=== PATIENT | male | born 1980 | race Caucasian/White ===

== ENCOUNTER 2018-05-02 10:22 | Day surgery (SDC) | payer OTHER ==
[2018-04-29 11:13] VITALS: BMI 36.3
[2018-05-02] MEDS ORDERED: PROPOFOL 20 ML ONE (12:36)
[2018-05-02] MEDS ORDERED: MIDAZOLAM HCL 2 MG/2 ML SINGLE DOSE VIAL ONE (12:36)
[2018-05-02] MEDS ORDERED: LIDOCAINE HCL 1%, 10 MG/ML (20ML VIAL) ONE (13:13)
[2018-05-02] MEDS ORDERED: oxyCODONE HCL 5 MG TABLET PO PRN ×2 (14:59)
[2018-05-02] MEDS ORDERED: ONDANSETRON 4 MG/2 ML VIAL IVPUSH PRN (14:59)
[2018-05-02] MEDS ORDERED: LACTATED RINGERS SOLUTION 1,000 ML IV SCH (15:00)
[2018-05-02] MEDS ORDERED: oxyCODONE HCL 5 MG TABLET ONE (15:53)
[2018-05-02 17:04] VITALS: BP 144/85; PULSE 72; TEMP 98.1
--- NOTE | 2018-05-03 12:03 | OP ---
DATE OF OPERATION: 05/02/2018 SURGEON: Ivonne Liu MD WELLNESS COORDINATOR: CARMINE Guajardo PREOPERATIVE DIAGNOSIS: Distal biceps tendon rupture at elbow. POSTOPERATIVE DIAGNOSIS: Distal biceps tendon rupture at elbow. PROCEDURE: Repair of distal biceps avulsion with repair to radial tuberosity. FINDINGS: Avulsed biceps tendon off the radial tuberosity. PROCEDURE: Informed consent was obtained. The patient was taken to the operating room where the right upper extremity was prepped and draped in a sterile fashion. A tourniquet was placed on the upper arm and inflated to 250 mmHg. A horizontal incision was made 2 cm distal to the elbow crease. This was done on the volar surface. The biceps tendon was identified after incising the fascia and soft tissue and scar tissue was removed. A number-2 FiberWire was used in an interlocking Tomales stitch and 2 of these were placed into the biceps tendon and secured to a toggle-lock device. The radial tuberosity insertion was identified and cleared of soft tissue. Using the toggle-lock system, a guide wire followed by a 7-mm and then an 8-mm drill bit was placed. This allowed for passage of the toggle lock to the posterior cortex where it was locked into place and then secured the biceps tendon into the bone tunnel. This was then tied into place, found to have good stability, strength, and the tendon was attached to the bleeding bone bed. Wound was irrigated with copious amounts of irrigation and tourniquet was released. There was no evidence of arterial bleeding. Layered closure with 2-0 Vicryl and 3-0 Prolene was performed. A sterile dressing was placed. The patient was transferred to the recovery room without complication. The PA listed above was present and assisted at surgery. Their presence was absolutely medically necessary for the completion of the procedure. They helped hold the arthroscopy, pass instruments (and implants when indicated) and the procedure could not have been completed without their assistance. IVONNE LIU M.D. [id number]
== END 2018-05-02 16:50 | disposition home or self-care (01) ==
LOC: FASU 10:22
PROVIDERS: ATTEND Orthopaedic Surgery
PROC: 0LM30ZZ Reattachment of Right Upper Arm Tendon, Open Approach (ICD-10-PCS; principal; 2018-05-02 14:01)
DX: S46.211A Strain of muscle, fascia and tendon of other parts of biceps, right arm, initial encounter (principal); X58.XXXA Exposure to other specified factors, initial encounter; Y93.9 Activity, unspecified; Y92.9 Unspecified place or not applicable
CPT/HCPCS: 94760